=== PATIENT | male | born 1950 | race Caucasian/White ===

== ENCOUNTER → 2017-09-02 | Outpatient (CLI) | payer MEDICARE ==
[2016-12-02 16:15] VITALS: BMI 23.7
[~2017-09-02] MED LIST: ASPI-757 PO; CELE-1 PO; CEPH500T7 PO; DIA5 PO; HYDR-318 PO; OXYC-865 PO; SIMV-49 PO; SIMV10TA98 PO; TRAM-420 PO
[2017-09-02 10:49] LABS: PLATELET COUNT, AUTOMATED 202 K/uL (150-450)
[2017-09-02 11:19] LABS: LDL CHOLESTEROL 97 mg/dl
== END ==
LOC: LAB 10:37
PROVIDERS: ATTEND Internal Medicine
DX: E78.5 Hyperlipidemia, unspecified (principal); R06.81 Apnea, not elsewhere classified
CPT/HCPCS: 36415; 82040; 82247; 82310; 82374; 82435; 82465; 82565; 82947; 83718; 84075; 84132; 84155; 84295; 84443; 84450; 84460; 84478; 84520; 85025

== ENCOUNTER → 2017-09-07 | Outpatient (CLI) | payer MEDICARE ==
[2016-12-02 16:15] VITALS: BMI 23.7
[~2017-09-07] MED LIST changes: +FLUT16SP19 NS; +PNEU0.5D3 IM
== END ==
LOC: LAB 13:40
PROVIDERS: ATTEND Internal Medicine
DX: Z12.5 Encounter for screening for malignant neoplasm of prostate (principal)
CPT/HCPCS: 36415; G0103; 84153

== ENCOUNTER → 2017-12-22 | Outpatient (CLI) | payer MEDICARE ==
[2016-12-02 16:15] VITALS: BMI 23.7
[~2017-12-22] MED LIST changes: +OMEP40CA48 PO
--- NOTE | 2017-12-22 14:48 | RADIOLOGY IMAGING REPORT ---
FACILITY: [facility] PATIENT NAME: Edward Padilla : 1950 MR: [id number] V: [id number] EXAM DATE: ORDERING PHYSICIAN: DAYNA CASSA TECHNOLOGIST: Location: [facility] Patient: Edward Padilla : 1950 Visit/Account:[id number] Date of Sevice: 12/22/2017 CHEST PA AND LAT Indication: chronic cough Comparison: Chest x-ray 11/09/2016 Findings: Lungs: There is hyperinflation and flattening the diaphragms. The lungs are clear. Mediastinum/pulmonary vasculature: Heart size and pulmonary vasculature are normal. Bones/soft tissues: Normal. IMPRESSION: 1. COPD. 2. Clear lungs. Report Dictated By: Erick Saenz at 12/22/2017 2:44 PM Report E-Signed By: Erick Saenz at 12/22/2017 2:45 PM WSN:[id number]
== END ==
LOC: RAD 14:09
PROVIDERS: ATTEND Otolaryngology
DX: J44.9 Chronic obstructive pulmonary disease, unspecified (principal)
CPT/HCPCS: 71046

== ENCOUNTER → 2018-10-03 | Outpatient (CLI) | payer MEDICARE ==
[2016-12-02 16:15] VITALS: BMI 23.7
[~2018-10-03] MED LIST changes: +AZEL23SP NS; +PANT40TA65 PO; +PNEI IJ; +RANI-325 PO; +SIMV-54 PO
[2018-10-03 10:44] LABS: PLATELET COUNT, AUTOMATED 200 K/uL (150-450)
[2018-10-03 11:40] LABS: LDL CHOLESTEROL 102 mg/dl
== END ==
LOC: LAB 09:58
PROVIDERS: ATTEND Internal Medicine
DX: Z12.5 Encounter for screening for malignant neoplasm of prostate (principal); Z00.00 Encounter for general adult medical examination without abnormal findings; E78.5 Hyperlipidemia, unspecified; I95.9 Hypotension, unspecified
CPT/HCPCS: 36415; 81001; 84443; 85025; G0103; 82040; 82247; 82310; 82374; 82435; 82465; 82565; 82947; 83718; 84075; 84132; 84153; 84155; 84295; 84450; 84460; 84478; 84520

== ENCOUNTER → 2018-10-11 | Outpatient (CLI) | payer MEDICARE ==
[2016-12-02 16:15] VITALS: BMI 23.7
== END ==
LOC: RESP 10:01
PROVIDERS: ATTEND Internal Medicine
DX: J98.4 Other disorders of lung (principal)
CPT/HCPCS: 94060; 94726; 94729

== ENCOUNTER → 2018-10-12 | Outpatient (CLI) | payer MEDICARE ==
[2016-12-02 16:15] VITALS: BMI 23.7
== END ==
LOC: AUD 13:00
PROVIDERS: ATTEND Internal Medicine
DX: H90.3 Sensorineural hearing loss, bilateral (principal)
CPT/HCPCS: 92552